=== PATIENT | female | born 1985 | race Caucasian/White ===

== ENCOUNTER 2018-02-19 06:12 | Outpatient (CLI) | payer OTHER | END 2018-02-19 06:13 | disposition EMS.NT | LOC: EMS 06:12 | PROVIDERS: ATTEND Surgery | DX: S01.05XA Open bite of scalp, initial encounter (principal); W54.0XXA Bitten by dog, initial encounter; Y93.K1 Activity, walking an animal ==

== ENCOUNTER 2018-02-19 08:33 | Emergency (ER) | payer OTHER ==
[2018-02-19 08:42] VITALS: BP 144/106
[2018-02-19] MEDS ORDERED: CIPROFLOXACIN 250 MG TABLET PO STA (08:43)
[2018-02-19] MEDS ORDERED: CLINDAMYCIN 150 MG CAPSULE PO STA (08:43)
[2018-02-19] MEDS ORDERED: BUFFERED LIDOCAINE 10 ML SYRINGE SUBQ STA (08:43)
--- NOTE | 2018-02-19 08:45 | ED Physician Documentation ---
PD HPI ANIMAL BITE - Stated complaint Stated Complaint: DOG BITE TO HEAD - Chief complaint Chief Complaint: Wound - History obtained from History obtained from: Patient - History of Present Illness Location of injury(ies): Scalp, LUE Details of the event: Dog Timing - onset: Today (She was walking her dog and to dog started fighting. She was knocked down to the ground and remembers being bitten on the left side of the scalp. She also has pain to the left wrist. No loss of consciousness. 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 She is allergic with hives to penicillin and erythromycin.) Review of Systems Constitutional: reports: Reviewed and negative Throat: reports: Reviewed and negative Cardiac: reports: Reviewed and negative PD PAST MEDICAL HISTORY - Present Medications Home Medications: Ambulatory Orders Medication Instructions Recorded Confirmed Ciprofloxacin HCl [Cipro] 500 mg PO BID #14 tablet 02/19/18 Clindamycin HCl [Clindamycin 300MG 300 mg PO Q6H #28 capsule 02/19/18 CAP] - Allergies Allergies/Adverse Reactions: Allergies Allergy/AdvReac Type Severity Reaction Status Date / Time erythromycin base Allergy Hives Verified 02/19/18 08:42 Penicillins Allergy Hives Verified 02/19/18 08:42 PD ED PE NORMAL - Vitals Vital signs reviewed: Yes - General General: Alert and oriented X 3, No acute distress - HEENT HEENT: PERRL, EOMI, Other (There is a 3 cm laceration over the posterior/inferior left mastoid.) - Neck Neck: Supple, no meningeal sign, No bony TTP - Cardiac Cardiac: RRR, No murmur - Respiratory Respiratory: No respiratory distress, Clear bilaterally - Derm Derm: Normal color, Warm and dry - Extremities Extremities: Other (She has some hurd over the left wrist, nothing really through the skin but she is tender over the distal lateral left wrist.) - Neuro Neuro: Alert and oriented X 3, Normal speech Results - Vitals Vitals: Vital Signs - 24 hr 02/19/18 08:40 Temperature 37.2 C Heart Rate 86 Respiratory 18 Rate Blood Pressure 144/106 H O2 Saturation 100 Oxygen O2 Source Room air - Rads (name of study) 4v L wrist Radiology: EMP read contemporaneously (normal) Procedures - Laceration (location) Scalp Length in cm: 3 Wound type: Linear, Into subcut fat Anesthesia: Lidocaine 1%, With bicarb Wound Preparation: Irrigated copiously NS Skin layer closure: Feliberto (8) Other: Patient tolerated well, No complications, Tetanus UTD Complexity: Simple Departure - Departure Disposition: 01 Home, Self Care Clinical Impression: Laceration, Animal bite with open wound Injury, crush, wrist Qualifiers: Encounter type: initial encounter Laterality: left Qualified Code(s): S67.32XA - Crushing injury of left wrist, initial encounter Instructions: Bites Scratches Animal Prescriptions: Ciprofloxacin HCl [Cipro] 500 mg PO BID #14 tablet Clindamycin HCl [Clindamycin 300MG CAP] 300 mg PO Q6H #28 capsule Comments: Come back for any signs of infection which would include: Redness, swelling, drainage, increased pain, or fevers. Follow-up with your physician in 10 days for staple removal. . Your blood pressure was elevated today on check into the emergency department. This does not mean that you have hypertension, it is a common phenomenon to come to the emergency department and have elevated blood pressure. I recommend that you see your primary care physician within the week to have it rechecked when you are feeling better.
--- NOTE | 2018-02-19 09:24 | XRAY Report ---
Reason: wrist inj Procedure Date: 02/19/2018 Accession Number: [id number] / [id number] Procedure: XR - Wrist 4 View LT CPT Code: FULL RESULT: EXAM: LEFT WRIST RADIOGRAPHY EXAM DATE: 02/19/2018 09:13 AM. CLINICAL HISTORY: Wrist injury. COMPARISON: None. TECHNIQUE: 4 views. FINDINGS: Bones: Normal. No fractures or bone lesions. Joints: Normal. No subluxations. Soft Tissues: Normal. No soft tissue swelling. IMPRESSION: Normal wrist radiography. [facility]
== END 2018-02-19 09:29 | disposition home or self-care (01) ==
LOC: ED 08:33
DX: S01.01XA Laceration without foreign body of scalp, initial encounter (principal); S67.32XA Crushing injury of left wrist, initial encounter; W54.0XXA Bitten by dog, initial encounter; W54.1XXA Struck by dog, initial encounter; Y93.K1 Activity, walking an animal
CPT/HCPCS: 12001; 73110; 99282; 99283; A9270